=== PATIENT | male | born 1950 | race Caucasian/White ===

== ENCOUNTER 2017-09-26 12:08 | Emergency (ER) | payer OTHER ==
[2017-09-26] MEDS ORDERED: predniSONE 20 MG TAB PO ONE (12:12)
[2017-09-26] MEDS ORDERED: HYDROcodone 7.5MG/APAP 325MG 1 EA TAB PO ONE (12:12)
[2017-09-26] MEDS ORDERED: diazePAM 5 MG TAB PO ONE (12:13)
[2017-09-26 12:22] VITALS: TEMP 98.8
[2017-09-26 13:46] VITALS: O2SAT 94
--- NOTE | 2017-09-26 13:51 | RAD ---
EXAM DESCRIPTION: Lumbar Spine 3 Views CLINICAL HISTORY: acute pain to the left with bending over COMPARISON: None Available. TECHNIQUE: AP/lateral/coned-down lateral FINDINGS: There is good alignment of the lumbar spine. There is no fracture or bone lesion. There are no significant degenerative changes observed. IMPRESSION: Normal Study Electronically signed by: Shad Arvizu MD 09/26/2017 1:50 PM CDT
[2017-09-26] MEDS ORDERED: MORPHINE SULFATE INJ 10 MG/ML VIAL IV ONE (14:09)
--- NOTE | 2017-09-26 16:45 | ED.PDOC ---
History of Present Illness - General Chief Complaint: Trauma Stated Complaint: low back pain Time Seen by Provider: 09/26/17 12:11 Source: patient Exam Limitations: no limitations - History of Present Illness Initial Comments: he patient is a 67-year-old male presenting to emergency room secondary to acute onset of severe left low back pain while he was bending over for the stove. He has had some back issues in the past. His back locked up on him and he was unable to move because of it. Pain is severe. Muscle spasms to the left of the spine and the lumbar spine are palpable. No neurological deficits. No palpable changes of the spine itself. No evidence of any trauma. Timing/Duration: 1/2 hour Severity: severe Improving Factors: nothing Worsening Factors: nothing Associated Symptoms: denies symptoms Allergies/Adverse Reactions: Allergies NO KNOWN ALLERGY Allergy (Verified 09/26/17 12:18) Home Medications: Ambulatory Orders Ghrjvsowsrzsa-Tugg-Yjkttylhtp [Fioricet] 1 ea PO Q8H PRN #21 tab 09/26/17 Cyclobenzaprine HCl [Flexeril] 5 mg PO TID PRN #30 tab 09/26/17 predniSONE [Prednisone] 20 mg PO DAILY #4 tab 09/26/17 Review of Systems - Review of Systems Constitutional: States: no symptoms reported EENTM: States: no symptoms reported Respiratory: States: no symptoms reported Cardiology: States: no symptoms reported Gastrointestinal/Abdominal: States: no symptoms reported Genitourinary: States: no symptoms reported Musculoskeletal: States: see HPI, back pain Skin: States: no symptoms reported Neurological: States: no symptoms reported Endocrine: States: no symptoms reported All other Systems: No Change from Baseline Past Medical History (General) - Patient Medical History Hx Seizures: No Hx Stroke: No Hx Congestive Heart Failure: No Hx Hypertension: Yes Hx Diabetes: No Hx Cancer: Yes Family Medical History - Family History Mother Family History: No Known Physical Exam - Physical Exam General Appearance: Alert, Obvious distress Eye Exam: bilateral normal Ears, Nose, Throat: hearing grossly normal, normal ENT inspection, normal pharynx Neck: full range of motion, supple Respiratory: lungs clear, normal breath sounds, no respiratory distress, no accessory muscle use Cardiovascular/Chest: normal peripheral pulses, regular rate, rhythm, no edema Peripheral Pulses: radial,right: 2+, radial,left: 2+, dorsalis pedis,right: 2+, dorsalis pedis,left: 2+ Gastrointestinal/Abdominal: non tender, soft Rectal Exam: deferred Back Exam: CVA tenderness (L) Extremity: normal range of motion, non-tender, normal inspection, no pedal edema , no calf tenderness, normal capillary refill 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, no motor/sensory deficits, alert, normal mood/affect, oriented x 3 Skin Exam: normal color - with the exception of chronic changes from his previus cancer treatments Comments: Vital Signs - 8 hr 09/26/17 09/26/17 09/26/17 12:08 12:15 13:39 Temperature 98.8 F Pulse Rate [ 70 61 left brachial] Respiratory 16 20 16 Rate Blood Pressure 160/105 162/97 [left brachial] O2 Sat by Pulse 97 94 L Oximetry 09/26/17 14:30 Temperature Pulse Rate [ 60 left brachial] Respiratory 14 Rate Blood Pressure 150/86 [left brachial] O2 Sat by Pulse 94 L Oximetry Progress - Progress Progress: 09/26/17 16:43 the patient is a 67-year-old male presenting to the emergency room secondary to acute onset of left lower back pain with muscle spasm. This appears to be an acute myofascial pain syndrome. The patient has responded to muscle relaxers and pain medications. He'll be placed on muscle relaxers in the form of Flexeril, Fioricet for as needed pain control and prednisone for the next 5 days. He does need to do gentle stretching. He needs to keep himself well-hydrated. Topical heat may also help. He should follow up with his primary care doctor towards the end of the week. ER warnings were given for any significant worsening. - Results/Orders Results/Orders: Laboratory Results - last 24 hr 09/26/17 09/26/17 13:06 13:06 WBC 6.3 RBC 4.65 L Hgb 15.3 Hct 43.4 MCV 93.1 MCH 32.9 H MCHC 35.3 RDW 13.5 Plt Count 209 MPV 6.9 L Absolute Neuts (auto) 4.90 Absolute Lymphs (auto) 0.70 L Absolute Monos (auto) 0.40 Absolute Eos (auto) 0.10 Absolute Basos (auto) 0.10 Neutrophils % 78.1 H Lymphocytes % 11.6 L Monocytes % 7.1 Eosinophils % 2.1 Basophils % 1.1 Sodium 135 Potassium 3.7 Chloride 103 Carbon Dioxide 25 Anion Gap 10.7 L BUN 21 H Creatinine 1.01 BUN/Creatinine Ratio 20.8 H Random Glucose 99 Serum Osmolality 273.1 L Calcium 8.8 Total Bilirubin 1.0 AST 20 ALT 17 Alkaline Phosphatase 55 Creatine Kinase 223 H* CK-MB (CK-2) 1.9 CK-MB (CK-2) % Not Reportable Troponin I < 0.02 Serum Total Protein 7.3 Albumin 4.1 Globulin 3.2 Albumin/Globulin Ratio 1.3 x-ray of the lumbar spine shows no acute pathology. No evidence of acute fracture or subluxation. Departure - Departure Clinical Impression: Acute myofascial strain Disposition: Discharge to Home or Self Care Condition: Fair Departure Forms: ED Discharge - Pt. Copy, Patient Portal Self Enrollment Instructions: DI for Myofascial Pain Syndrome Diet: regular diet Activity: increase activity as tolerated Prescriptions: Uqmhxqjtnqaof-Fsae-Tboawhoizk [Fioricet] 1 ea PO Q8H PRN #21 tab PRN Reason: Pain Cyclobenzaprine HCl [Flexeril] 5 mg PO TID PRN #30 tab PRN Reason: Muscle Spasms predniSONE [Prednisone] 20 mg PO DAILY #4 tab Home Medications: Ambulatory Orders Bpbogicoxescf-Zqht-Eyfmmppucp [Fioricet] 1 ea PO Q8H PRN #21 tab 09/26/17 Cyclobenzaprine HCl [Flexeril] 5 mg PO TID PRN #30 tab 09/26/17 predniSONE [Prednisone] 20 mg PO DAILY #4 tab 09/26/17 Additional Instructions: the patient is a 67-year-old male presenting to the emergency room secondary to acute onset of left lower back pain with muscle spasm. This appears to be an acute myofascial pain syndrome. The patient has responded to muscle relaxers and pain medications. He'll be placed on muscle relaxers in the form of Flexeril, Fioricet for as needed pain control and prednisone for the next 5 days. He does need to do gentle stretching. He needs to keep himself well-hydrated. Topical heat may also help. He should follow up with his primary care doctor towards the end of the week. ER warnings were given for any significant worsening.
[2017-09-26 17:25] VITALS: BP 151/86
== END 2017-09-26 17:29 | disposition home or self-care (01) ==
LOC: ER 12:08
DX: S39.012A Strain of muscle, fascia and tendon of lower back, initial encounter (principal); I10 Essential (primary) hypertension; Z85.9 Personal history of malignant neoplasm, unspecified; X58.XXXA Exposure to other specified factors, initial encounter
CPT/HCPCS: 36415; 72100; 80053; 82550; 82553; 84484; 85025; J2270; J7512